=== PATIENT | male | born 1960 | race Caucasian/White ===

== ENCOUNTER 2023-11-08 17:39 | Emergency (ER) | payer OTHER ==
[2023-11-08] MEDS: Sodium Chloride 0.9% 1,000 ML IV ONE (18:16)
[2023-11-08] MEDS: Cefepime 2 GM in Sodium Chloride 0.9% 50 ML IV ONE (18:17)
[2023-11-08 18:25] LABS: BASOPHILS ABSOLUTE AUTO 0.03 K/uL (0.00-0.20); BASOPHILS PERCENT AUTO 0.3 % (0.0-1.0); EOSINOPHILS ABSOLUTE AUTO 0.06 K/uL (0.00-0.45); EOSINOPHILS PERCENT AUTO 0.5 % (0.0-6.0); HEMATOCRIT 43.7 % (42.0-52.0); HEMOGLOBIN 15.3 g/dL (14.0-18.0); IMMATURE GRAN ABSOLUTE AUTO 0.04 K/uL (0.00-0.05); IMMATURE GRAN PERCENT AUTO 0.3 % (0.0-0.4); LYMPHOCYTES PERCENT AUTO 17.6 % (24.0-44.0); MEAN CORPUSCULAR HEMOGLOBIN 30.8 pg (28.0-32.0); MEAN CORPUSCULAR VOLUME 87.9 fL (83.0-99.0); MEAN PLATELET VOLUME 10.6 fL (9.4-12.4); MONOCYTES ABSOLUTE AUTO 0.88 K/uL (0.00-0.80); MONOCYTES PERCENT AUTO 7.4 % (0.0-8.0); NEUTROPHILS PERCENT AUTO 73.9 % (41.0-71.0); PLATELET COUNT,PLT 245 K/uL (150-400); RED BLOOD CELL COUNT 4.97 M/uL (4.52-5.90); WHITE BLOOD CELL COUNT,WBC 11.91 K/uL (3.9-11.3)
[2023-11-08 18:45] LABS: INR 0.99 (0.86-1.11); PTT,PARTIAL THROMBOPLSTIN TIME 29.6 SEC (23.9-30.7)
[2023-11-08 18:49] LABS: A/G RATIO 0.9 (0.9-1.6); ALBUMIN 3.8 g/dL (3.4-5.0); BILIRUBIN TOTAL 0.3 mg/dL (0.2-1.0); C-REACTIVE PROTEIN 1.16 mg/dL (<0.3); CALCIUM 9.1 mg/dL (8.5-10.1); CARBON DIOXIDE,CO2 26.9 mmol/L (21.0-32.0); CREATININE 1.3 mg/dL (0.8-1.3); EST CRCL DRUG DOSING (CG) 53.85 mL/min; POTASSIUM,K 4.1 mmol/L (3.5-5.1); PROTEIN TOTAL,TP 7.8 g/dL (6.4-8.2)
[2023-11-08 18:54] LABS: LACTIC ACID 1.1 mmol/L (0.4-2.0)
== END 2023-11-08 20:15 | disposition home or self-care (01) ==
LOC: MW.ED 17:39 → EDSEX 17:39 → MW.ED 20:15
DX: L03.115 Cellulitis of right lower limb (principal)
CPT/HCPCS: 36415; 80053; 83605; 85025; 85610; 85730; 86140; 87040; 93971; 96365; 99284; J0692; J3490; J7030; 99283

== ENCOUNTER 2023-11-13 18:27 | Emergency (ER) | payer OTHER ==
[2023-11-13] MEDS: Doxycycline 100 MG Cap PO ONE (20:07)
== END 2023-11-13 20:20 | disposition home or self-care (01) ==
LOC: MW.ED 18:27
DX: L03.115 Cellulitis of right lower limb (principal)
CPT/HCPCS: 99283; A9270

== ENCOUNTER → 2024-04-21 | Day surgery (SDC) | payer OTHER ==
[~2024-04-21] MED LIST: Albuterol 0.083% 2.5 MG/3 ML Neb Soln NEB PRN; Bupivacaine 0.25% 30 ML SDV ONE; Dexamethasone 4 MG/ML 5 ML MDV ONE; HYDROmorphone 1 MG/ML Syringe IVPUSH PRN; Ketorolac 30 MG/ML SDV ONE; Lidocaine 1% 20 ML MDV ONE; Lidocaine 2% 5 ML SDV ONE; Metoclopramide 10 MG/2 ML SDV IVPUSH PRN; Morphine 2 MG/ML SYRINGE IVPUSH PRN; Naloxone 0.4 MG/ML SDV IVPUSH PRN; Ondansetron 4 MG/2 ML SDV IVPUSH PRN; Ondansetron 4 MG/2 ML SDV ONE; Propofol 200 MG/20 ML SDV ONE; Rocuronium Bromide 50 MG/5 ML Syringe ONE; Sugammadex Sodium 200 MG/2 ML VIAL IV ONE; ceFAZolin 2 GM Vial ONE; ceFAZolin 2 GM in Sodium Chloride 0.9% 50 ML IV ONE; droPERidol 5 MG/2 ML SDV IVPUSH PRN; ePHEDrine 50 MG/ML SDV ONE; fentaNYL 100 MCG/2 ML SDV ONE; fentaNYL 50 MCG/ML SDV IVPUSH PRN
[2024-04-21] MEDS: Lactated Ringers 1,000 ML IV SCH (08:40)
== END | disposition home or self-care (01) ==
LOC: MW.SDS 07:53
PROVIDERS: ATTEND Orthopaedic Surgery
DX: M79.5 Residual foreign body in soft tissue (principal); E66.9 Obesity, unspecified; Z68.35 Body mass index [BMI] 35.0-35.9, adult
CPT/HCPCS: 27372; J0131; J0665; J0690; J1100; J1885; J2405; J2704; J3010; J3490; J7120

== ENCOUNTER 2024-05-12 10:13 | Day surgery (SDC) | payer OTHER ==
[~2024-05-12 10:13] MED LIST changes: -Bupivacaine 0.25% 30 ML SDV ONE; -Dexamethasone 4 MG/ML 5 ML MDV ONE; -Ketorolac 30 MG/ML SDV ONE; -Lidocaine 1% 20 ML MDV ONE; -Lidocaine 2% 5 ML SDV ONE; -Ondansetron 4 MG/2 ML SDV ONE; +Phenylephrine HCl In 0.9% NaCl 1 MG/10 ML Syringe IVPUSH PRN; -Propofol 200 MG/20 ML SDV ONE; -Rocuronium Bromide 50 MG/5 ML Syringe ONE; -Sugammadex Sodium 200 MG/2 ML VIAL IV ONE; -ceFAZolin 2 GM Vial ONE; -ceFAZolin 2 GM in Sodium Chloride 0.9% 50 ML IV ONE; -ePHEDrine 50 MG/ML SDV ONE; -fentaNYL 100 MCG/2 ML SDV ONE
[2024-05-12] MEDS: Lactated Ringers 1,000 ML IV SCH (11:03)
[2024-05-12] MEDS ORDERED: Propofol 200 MG/20 ML SDV ONE (11:15)
[2024-05-12] MEDS ORDERED: fentaNYL 100 MCG/2 ML SDV ONE (11:15)
[2024-05-12] MEDS ORDERED: dexmedeTOMIDine HCl 200 MCG/2 ML SDV ONE (11:16)
[2024-05-12] MEDS ORDERED: Bupivacaine 0.5% 30 ML SDV ONE (11:42)
[2024-05-12] MEDS ORDERED: propofoL 50 ML ONE (12:15)
[2024-05-12] MEDS ORDERED: ePHEDrine 50 MG/ML SDV ONE (12:21)
[2024-05-12] MEDS ORDERED: Phenylephrine HCl In 0.9% NaCl 1 MG/10 ML Syringe ONE (12:35)
[2024-05-12] MEDS ORDERED: ceFAZolin 2 GM Vial ONE (12:37)
== END 2024-05-12 14:38 | disposition home or self-care (01) ==
LOC: MW.SDS 10:13
PROVIDERS: ATTEND Orthopaedic Surgery
DX: S81.801A Unspecified open wound, right lower leg, initial encounter (principal); E66.9 Obesity, unspecified; Z87.891 Personal history of nicotine dependence; Z98.890 Other specified postprocedural states
CPT/HCPCS: 10121; 87070; 87075; 87205; J0665; J0690; J2371; J2704; J3010; J7120; J3490

== ENCOUNTER 2024-06-11 12:57 | Day surgery (SDC) | payer OTHER ==
[~2024-06-11 12:57] MED LIST changes: +Bupivacaine 0.25% 30 ML SDV ONE; +Dexamethasone 4 MG/ML 5 ML MDV ONE; +Lidocaine 1% 20 ML MDV ONE; +Lidocaine 2% 5 ML SDV ONE; +Ondansetron 4 MG/2 ML SDV ONE; +Propofol 200 MG/20 ML SDV ONE; +Rocuronium Bromide 50 MG/5 ML Syringe ONE; +fentaNYL 100 MCG/2 ML SDV ONE
[2024-06-11] MEDS: Lactated Ringers 1,000 ML IV SCH (14:31)
[2024-06-11] MEDS ORDERED: ceFAZolin 1 GM Vial ONE (15:09)
[2024-06-11] MEDS ORDERED: Bupivacaine 0.5%/EPINEPHrine 1:200,000 30 ML SDV ONE ×2 (15:32→15:35)
[2024-06-11] MEDS ORDERED: Sugammadex Sodium 200 MG/2 ML VIAL IV ONE (15:58)
== END 2024-06-11 18:25 | disposition home or self-care (01) ==
LOC: MW.SDS 12:57 → MW.MS 17:19 → MW.SDS 18:25
PROVIDERS: ATTEND Orthopaedic Surgery
DX: M79.5 Residual foreign body in soft tissue (principal); L98.8 Other specified disorders of the skin and subcutaneous tissue; E66.9 Obesity, unspecified; Z79.899 Other long term (current) drug therapy
CPT/HCPCS: 11042; 27372; 73700; J0690; J1100; J2405; J2704; J3010; J3490; J7120; 01470; J0665